=== PATIENT | female | born 1990 | race Two or more races ===

== ENCOUNTER 2021-07-29 22:16 | Inpatient (IN) | payer OTHER ==
[~2021-07-29] VITALS: Ht 165.1 cm; Wt 81.7 kg
[2021-07-30 00:02] LABS: BASOPHILS ABSOLUTE AUTO 0.06 K/mm3 (0.00-0.23); BASOPHILS PERCENT AUTO 0 % (0-2); EOSINOPHILS PERCENT AUTO 2 % (0-6); Hematocrit 42.1 % (33.0-51.0); Hemoglobin 14.7 g/dL (11.5-16.0); IMMATURE GRAN ABSOLUTE AUTO 0.03 K/mm3 (0.00-0.10); IMMATURE GRAN PERCENT AUTO 0 % (0-1); LYMPHOCYTES ABSOLUTE AUTO 2.79 K/mm3 (0.84-5.20); LYMPHOCYTES PERCENT AUTO 21 % (21-46); MONOCYTES ABSOLUTE AUTO 0.96 K/mm3 (0.16-1.47); MONOCYTES PERCENT AUTO 7 % (4-13); Mean Corpuscular HGB 32.1 pg (26.0-34.0); Mean Corpuscular HGB Conc 34.9 g/dL (31.5-36.5); Mean Corpuscular Volume 92 fL (80-100); NEUTROPHILS ABSOLUTE AUTO 9.39 K/mm3 (1.96-9.15); NEUTROPHILS PERCENT AUTO 70 % (41-73); Platelet Count 301 K/mm3 (150-400); RDW Coefficient Variation 11.5 % (11.7-14.2); RDW Standard Deviation 38.9 fL (35.1-46.3); Red Blood Cell Count 4.58 M/mm3 (3.80-5.20); White Blood Cell Count 13.53 K/mm3 (4.00-11.30)
[2021-07-30 00:19] LABS: Alanine Aminotransfer (ALT/SGP 27 U/L (12-78); Albumin, Blood 3.8 g/dL (3.4-5.0); Alk Phos 66 U/L (50-136); Anion Gap 5 mmol/L (6-16); Aspartate Aminotrans (AST/SGOT 25 U/L (12-37); Bilirubin, Total 0.8 mg/dL (0.1-1.0); Blood Urea Nitrogen 5 mg/dL (8-24); CO2, Blood 26 mmol/L (21-32); Calcium, Blood 8.8 mg/dL (8.5-10.1); Chloride, Blood 108 mmol/L (98-108); Creatinine, Blood 0.62 mg/dL (0.40-1.00); Glomerular Filtration Rate >60 (60-); Glucose, Blood 106 mg/dL (70-99); Potassium, Blood 4.1 mmol/L (3.5-5.5); Sodium, Blood 139 mmol/L (136-145); Total Protein, Blood 7.8 g/dL (6.4-8.2)
[2021-07-30 03:56] LABS: SARS-Cov-2 (COVID-19) PCR, MMC NEGATIVE (NEGATIVE)
[2021-07-30 06:26] LABS: Anion Gap 6 mmol/L (6-16); Blood Urea Nitrogen 4 mg/dL (8-24); Bun/Creatinine Ratio 6.5 (12.0-20.0); CO2, Blood 22 mmol/L (21-32); Calcium, Blood 8.8 mg/dL (8.5-10.1); Chloride, Blood 107 mmol/L (98-108); Creatinine, Blood 0.62 mg/dL (0.40-1.00); Glomerular Filtration Rate >60 (60-); Glucose, Blood 111 mg/dL (70-99); Potassium, Blood 4.2 mmol/L (3.5-5.5); Sodium, Blood 135 mmol/L (136-145)
[2021-07-30 06:31] LABS: BASOPHILS ABSOLUTE AUTO 0.05 K/mm3 (0.00-0.23); BASOPHILS PERCENT AUTO 0 % (0-2); EOSINOPHILS ABSOLUTE AUTO 0.07 K/mm3 (0.00-0.68); EOSINOPHILS PERCENT AUTO 1 % (0-6); Hematocrit 43.8 % (33.0-51.0); Hemoglobin 15.3 g/dL (11.5-16.0); IMMATURE GRAN ABSOLUTE AUTO 0.05 K/mm3 (0.00-0.10); IMMATURE GRAN PERCENT AUTO 0 % (0-1); LYMPHOCYTES PERCENT AUTO 9 % (21-46); MONOCYTES ABSOLUTE AUTO 0.32 K/mm3 (0.16-1.47); MONOCYTES PERCENT AUTO 2 % (4-13); Mean Corpuscular HGB 32.2 pg (26.0-34.0); Mean Corpuscular HGB Conc 34.9 g/dL (31.5-36.5); Mean Corpuscular Volume 92 fL (80-100); NEUTROPHILS ABSOLUTE AUTO 12.18 K/mm3 (1.96-9.15); NEUTROPHILS PERCENT AUTO 88 % (41-73); RDW Coefficient Variation 11.5 % (11.7-14.2); RDW Standard Deviation 38.9 fL (35.1-46.3); Red Blood Cell Count 4.75 M/mm3 (3.80-5.20); White Blood Cell Count 13.87 K/mm3 (4.00-11.30)
[2021-07-30 06:33] LABS: Mean Platelet Volume 9.6 fL (9.1-12.4); Platelet Count 238 K/mm3 (150-400)
--- NOTE | 2021-07-30 18:46 | NUR ---
SHIFT SUMMARY: NO ACUTE CHANGES TO REPORT THIS SHIFT. PT A&O; CALM AND COOPERATIVE WITH CARE. NO C/O PAIN THIS SHIFT. BEDSIDE I&D (DR MCCLURE) TO L MAXILLA THIS SHIFT; 2ML PURULENT DRAINAGE REMOVED; PT TOLERATED WELL. IV ABX CONTINUING. WCTM.
--- NOTE | 2021-07-30 19:00 | NUR ---
ASSUMED CARE RECEIVED REPORT FROM ELLA ALEMAN. PT RESTING, IN NAD. NO ACUTE NEEDS ASSESSED AT THIS TIME. CALL LIGHT, POSSESSIONS IN REACH. WCTM.
--- NOTE | 2021-07-31 06:01 | NUR ---
SHIFT SUMMARY PT RESTING, IN NAD. APPEARED TO SLEEP WELL OVERNIGHT. VS REVIEWED,WNL. NO C/O PAIN OVERNIGHT. SWELLING TO LT CHEEK REMAINS UNCHANGED, PT DENIES DIFFICULTY BREATHING OR SWALLOWING. NO ACUTE NEEDS ASSESSED AT THIS TIME. CALL LIGHT, POSSESSIONS IN REACH. WILL CHECK ER CHECK IN DESK FOR BELONGINGS BROUGHT BY SIGNIFICANT OTHER. WILL REPORT OFF TO ONCOMING RN.
--- NOTE | 2021-07-31 13:44 | NUR ---
I WAS WALKING TOWARDS THE ELEVATOR TO TAKE MY LUNCH BREAK I NOTICED PATIENT DRESSED WITH HER IV SITE WRAPPED ODDLY WITH COBAN AND TAPE. I ASKED THE PATIENT IF THE DOCTOR HAD COME TO SEE HER YET; SHE REPLIED: YES. I THEN ASKED IF A NURSE REMOVED HER IV; AGAIN SHE REPLIED: YES. LASTLY I ASKED IF SHE WAS LEAVING AMA TO WHICH SHE REPLIED "YES" A FINAL TIME. SHE THEN ENTERED THE ELEVATOR TO DISCHARGE HOME. DR MCCLURE HAD WANTED PATIENT TO BE DISCHARGED ON AUGMENTIN 875MG BID X TWO WEEKS HOWEVER PATIENT LEFT WITHOUT BEING DISCHARGED BY THE HOSPITALIST AND WITHOUT D/C INSRUCTIONS OR MEDS. DR PÉREZ NOTIFIED BY JASMYNE LUX RN. PATIENT LEFT AMA AT APPROX 1300.
== END 2021-07-31 13:03 | disposition left against medical advice (07) | DRG 872 ==
LOC: ER 22:16 → MEDS 07-30 03:27
PROVIDERS: Family Medicine; Physician Assistant; ADMIT Internal Medicine
PROC: 0J913ZZ Drainage of Face Subcutaneous Tissue and Fascia, Percutaneous Approach (ICD-10-PCS; principal; 2021-07-31)
DX: A41.9 Sepsis, unspecified organism (principal); L03.211 Cellulitis of face; K04.7 Periapical abscess without sinus; Z20.822 Contact with and (suspected) exposure to COVID-19; R59.0 Localized enlarged lymph nodes; K02.9 Dental caries, unspecified; J45.909 Unspecified asthma, uncomplicated; F12.90 Cannabis use, unspecified, uncomplicated; F17.210 Nicotine dependence, cigarettes, uncomplicated
CPT/HCPCS: 36415; 70487; 80048; 80053; 85025; 94640; 94664; 94760; 96374; 96375; 96376; 99284-25; A9270; J0295; J1100; J1650; J2270; J2405; J7030; Q9967; U0004